=== PATIENT | male | born 1995 | race Caucasian/White ===

== ENCOUNTER 2019-03-12 20:03 | Emergency (ER) | payer OTHER ==
[~2019-03-12] VITALS: Ht 165.1 cm; Wt 81.6 kg
[2019-03-12 20:16] VITALS: Ht 165.1 cm; Wt 81.6 kg
[2019-03-12 20:55] VITALS: BP 117/77
== END 2019-03-12 20:55 | disposition home or self-care (01) ==
LOC: ED 20:03
DX: S81.831A Puncture wound without foreign body, right lower leg, initial encounter (principal); W54.0XXA Bitten by dog, initial encounter; Y93.89 Activity, other specified; Y92.89 Other specified places as the place of occurrence of the external cause; Y99.0 Civilian activity done for income or pay